=== PATIENT | female | born 1975 | race Caucasian/White ===

== ENCOUNTER 2020-11-11 14:19 | Emergency (ER) | payer OTHER ==
[2020-11-11] MEDS ORDERED: Cyclobenzaprine 10 MG TAB ONE (15:01)
[2020-11-11] MEDS ORDERED: Ketorolac Tromethamine 60 MG/2 ML VIAL ONE (15:01)
== END 2020-11-11 16:20 | disposition home or self-care (01) ==
LOC: MADERS 14:19
DX: S70.02XA Contusion of left hip, initial encounter (principal); S70.01XA Contusion of right hip, initial encounter; S00.03XA Contusion of scalp, initial encounter; S40.012A Contusion of left shoulder, initial encounter; S40.011A Contusion of right shoulder, initial encounter; S30.0XXA Contusion of lower back and pelvis, initial encounter; S20.229A Contusion of unspecified back wall of thorax, initial encounter; S80.811A Abrasion, right lower leg, initial encounter; M54.2 Cervicalgia; K31.84 Gastroparesis; M81.0 Age-related osteoporosis without current pathological fracture; F17.210 Nicotine dependence, cigarettes, uncomplicated; Z79.899 Other long term (current) drug therapy; Z79.891 Long term (current) use of opiate analgesic; Z85.3 Personal history of malignant neoplasm of breast; W18.30XA Fall on same level, unspecified, initial encounter
CPT/HCPCS: 72072; 72100; 96372; J1885

== ENCOUNTER 2020-11-12 17:25 | Emergency (ER) | payer OTHER ==
[2020-11-12] MEDS ORDERED: Ketorolac Tromethamine 60 MG/2 ML VIAL ONE (18:17)
== END 2020-11-12 18:58 | disposition home or self-care (01) ==
LOC: MADERS 17:25
DX: S50.12XA Contusion of left forearm, initial encounter (principal); S10.93XA Contusion of unspecified part of neck, initial encounter; S70.12XA Contusion of left thigh, initial encounter; S30.0XXA Contusion of lower back and pelvis, initial encounter; F07.81 Postconcussional syndrome; R51.9 Headache, unspecified; M81.0 Age-related osteoporosis without current pathological fracture; F17.210 Nicotine dependence, cigarettes, uncomplicated; Z85.3 Personal history of malignant neoplasm of breast; Z79.899 Other long term (current) drug therapy; Z79.891 Long term (current) use of opiate analgesic; W17.89XA Other fall from one level to another, initial encounter
CPT/HCPCS: 70450; 72125; 96372; J1885

== ENCOUNTER 2021-02-22 13:58 | Outpatient (CLI) | payer OTHER | END 2021-02-22 13:59 | disposition home or self-care (01) | LOC: MADLAB 13:58 | PROVIDERS: ATTEND Family Medicine | DX: S82.92 Unspecified fracture of left lower leg (principal) ==

== ENCOUNTER 2021-02-22 14:59 | Emergency (ER) | payer OTHER ==
[2021-02-22 16:20] LABS: #Basophils 0.1 thou/uL (0.0-0.2); #Eosinphils 0.3 thou/uL (0.0-0.7); #Lymphocytes 2.8 thou/uL (1.20-3.40); #Monocytes 0.5 thou/uL (0.11-0.59); #Neutrophils 4.7 thou/uL (1.40-6.50); %Basophils 1.3 % (0.0-1.0); %Eosinophils 3.6 % (0.0-10.0); %Lymphocytes 33.5 % (21.0-51.0); %Monocytes 5.9 % (0.0-10.0); %Neutrophils 55.7 % (42.0-75.0); Hemoglobin 13.3 g/dL (12.0-16.0); Mean Corpuscular HGB CONC 35.6 g/dL (32.0-36.0); Mean Corpuscular Hemoglobin 33.2 pg (27.0-31.0); Mean Corpuscular Volume 93.2 fL (78.0-98.0); Mean Platelet Volume 9.4 fL (7.4-10.4); Platelet Count 253 thou/uL (130-400); RBC Distribution Width 12.6 % (11.5-14.5); Red Blood Cell (RBC) Count 4.01 mill/uL (4.20-5.40); White Blood Cell (WBC) Count 8.4 thou/uL (4.8-10.8)
[2021-02-22 16:22] LABS: ALT (SGPT) 17 U/L (8-55); AST (SGOT) 18 U/L (5-34); Albumin 3.8 g/dL (3.5-5.0); Alkaline Phosphatase 97 U/L (40-110); Anion Gap 13 mmol/L (10-20); BUN (Urea Nitrogen) 6 mg/dL (7.0-18.7); Bilirubin, Total 0.3 mg/dL (0.2-1.2); Calc. Creatinine Clearance 0 mL/min (70-130); Calcium 9.6 mg/dL (7.8-10.44); Carbon Dioxide 22 mmol/L (22-29); Chloride 107 mmol/L (98-107); Globulin 3.4 g/dL (2.4-3.5); Glucose 94 mg/dL (70-105); Potassium 3.9 mmol/L (3.5-5.1); Protein, Total 7.2 g/dL (6.0-8.3); Sodium 138 mmol/L (136-145)
[2021-02-22] MEDS ORDERED: Ciprofloxacin 500 MG TAB ONE (17:55)
[2021-02-22] MEDS ORDERED: HYDROcodone/Acetaminophen 5/325 mg Tablet ONE (17:59)
[2021-02-22] MEDS ORDERED: Ketorolac Tromethamine 30 MG/ML VIAL ONE (18:23)
== END 2021-02-22 18:49 | disposition home or self-care (01) ==
LOC: MADERS 14:59
DX: L08.9 Local infection of the skin and subcutaneous tissue, unspecified (principal); F17.210 Nicotine dependence, cigarettes, uncomplicated
CPT/HCPCS: 36415; 80053; 83605; 85025; 86140; 87040; 87070; 87077; 87186; 87205; 96372; 99283; J1885